=== PATIENT | male | born 1995 | race Caucasian/White ===

== ENCOUNTER 2024-02-05 14:17 | Emergency (ER) | payer BC, SELFPAY ==
[2024-02-05 14:28] VITALS: BP 129/89
[2024-02-05 15:00] LABS: % Basophils 0.6 % (0-2); % Eosinophils 1.5 % (0-6); % Immature Granulocytes 0.3 % (0-0.5); % Lymphocytes 25.8 % (20.5-51.1); % Monocytes 10.4 % (1.7-9.3); % Neutrophils 61.4 % (42.2-75.2); Absolute Eosinophils 0.1 10^3/uL (0-0.7); Absolute Lymphocytes 1.7 10^3/uL (1.2-3.4); Absolute Monocytes 0.7 10^3/uL (0.1-0.6); Absolute Neutrophils 4.1 10^3/uL (1.4-6.5); Hematocrit 38.8 % (39.0-52.0); Hemoglobin 13.9 g/dL (13.0-18.0); Mean Corp Hgb Conc. 35.8 g/dL (33.0-37.0); Mean Corpuscular Hgb 32.1 pg (27.0-31.0); Mean Corpuscular Volume 89.6 fL (80.0-94.0); Mean Platelet Volume 10.5 fL (7.4-10.4); Nucleated Red Blood Cells % 0 % (-); Platelet Count 383 10^3/uL (130-400); Red Blood Cell Count 4.33 10^6/uL (4.70-6.10); Red Cell Dist. Width 11.6 % (11.5-14.5); White Blood Cell Count 6.7 10^3/uL (4.8-10.8)
--- NOTE | 2024-02-05 15:11 | ED.GENMED ---
History of Present Illness
General
Chief Complaint: Abdominal Symptoms
Source: patient
Exam Limitations: none
Time Seen by Provider: 02/05/24 15:04
Nursing documentation reviewed up to this point in time: agreed with
History of Present Illness
History of Present Illness:
This is a 28 y/o male with a pmh of idiopathic gastroparesis presenting to the emergency department today with concerns of nausea, vomiting, and a few episodes or diarrhea. This started 4 days ago. Patient states that with his gastroparesis, he
gets recurrent episodes of nausea and vomiting. Patient states that his episodes have gotten less frequent since the placement of the gastric pacemaker, however patient reports that the pacemaker is currently at its highest setting. Patient states
he has some mild abdominal discomfort in his left lower abdomen around the area of his pacemaker, he attributes this to skin stretching since he lost weight since the placement of the pacemaker. He sees Dr. Nagy with [facility].
Patient has a follow up appointment next week with gastroenterology nurse practitioner and follow up with his physician in March. Patient denies any recent antibiotic therapy, any fevers or chills. Patient denies any chest pain, shortness of
breath.
Review of Systems
Review of Systems
All Other Systems: ROS reviewed and negative except as documented in HPI and ROS
Phy Exam
Physical Exam
Physical Exam:
General: Patient is well appearing and in no acute distress; non-toxic
Skin: Patient is pale and mildly diaphoretic.
Head: Normocephalic, atraumatic
Eyes: Sclera non-icteric. EOMs intact.
Cardiac: Regular rate and rhythm, no murmurs
Peripheral Vascular: No lower extremity swelling or edema
Pulm: Normal respiratory effort
Abdomen: No abdominal tenderness to palpation. Gastric pacemaker in place below skin in LLQ.
Neuro: CN II-XII intact, no focal neurologic deficits. PERRLA.
Psychiatric: Appropriate mood and affect.
Course
Orders/Labs/Results
Orders:
Orders
02/05/24 14:33
CMP [Comprehensive Metabolic Panel] Urgent
Complete Blood Count/With Diff Urgent
02/05/24 15:28
Ondansetron Injectable [Zofran] 4 mg IV NOW STA
02/05/24 16:06
0.9% Sodium Chloride 500 ml [Nss] 500 ml IV BOLUS
02/05/24 16:10
0.9% Sodium Chloride 250 ml [Nss] 250 ml IV BOLUS
02/05/24 16:32
0.9% Sodium Chloride 1000 ml [Nss] 1,000 ml IV BOLUS
Abnormal Lab Results
02/05/24
14:33
RBC 4.33 L 10^6/uL
(4.70-6.10)
Hct 38.8 L %
(39.0-52.0)
MCH 32.1 H pg
(27.0-31.0)
MPV 10.5 H fL
(7.4-10.4)
Absolute Monos (auto) 0.7 H 10^3/uL
(0.1-0.6)
Monocytes % 10.4 H %
(1.7-9.3)
Carbon Dioxide 31 H mmol/L
(22-30)
02/05/24 14:33
02/05/24 14:33
Vital Signs
Initial and Last Documented VS:
Initial Vital Signs
Temp Pulse Resp BP Pulse Ox
98.3 F 95 18 129/89 97
02/05/24 14:28 02/05/24 14:28 02/05/24 14:28 02/05/24 14:28 02/05/24 14:28
Last Documented Vital Signs
Temp Pulse Resp BP Pulse Ox
98.3 F 70 20 112/76 99
02/05/24 14:28 02/05/24 16:00 02/05/24 16:00 02/05/24 16:00 02/05/24 16:00
MDM/Problems Addressed
Differential Diagnosis Includes:
Differentials include gastroparesis exacerbation, gastroenteritis, IBS, C. difficile infection
MDM/Problems Addressed:
Gastroparesis:
This is a 28 y/o male with a pmh of idiopathic gastroparesis presenting to the emergency department today with concerns of nausea, vomiting, and a few episodes or diarrhea. This started 4 days ago. Patient states that with his gastroparesis, he
gets recurrent episodes of nausea and vomiting. Patient states that this episode is characteristic of his gastroparesis. Patient's manager mining advised him to report to the emergency department for IV fluids. Patient was also sent a
prescription of Compazine to his pharmacy by his manager mining to take after eating fluids. Here in emergency department, patient received fluids and he received Zofran. On reevaluation, patient states that he feels better, no longer feels
pale and is no longer diaphoretic. His CBC and CMP are unremarkable. Patient states that he has a follow-up appointment coming up with his gastroenterology team, patient stable for discharge. Discussed return precautions.
Chronic conditions affecting care:
Idiopathic gastroparesis with gastric pacemaker in place
Acute Exacerbation and/or Progression of Chronic Illness:
Idiopathic gastroparesis with gastric pacemaker in place
*Pulse Oximetry
Patient hypoxic: no
*Critical Care Note
Total Time (30-74mins, 75-104mins- exclusive of procedures): Not Applicable
Patient Management
Escalation/DeEscalation of care consider admission/obs:
Patient stable for discharge, reviewed case with my attending Dr. Norris
Update Note
Update Note:
3:56 pm-- Patient reports that his nausea is much better controlled at this point. On physical exam, he no longer has pallor.
ED Attending Note
-
Portions of this chart may have been created with voice recognition software.� Occasional wrong word or��sound alike� substitutions may have occurred due to the inherent limitations of voice recognition software.
Discharge Plan
Departure
Patient Disposition: Home (Routine Discharge)
Date of Disposition: 02/05/24
Time of Disposition: 16:45
Patient with high blood pressure during this ER visit?: Yes
Condition: Good
Discharge Problem:
Nausea & vomiting, Gastroparesis
Instructions: Dehydration, Adult (DC), Acute Diarrhea
Prescriptions:
No Action
lamotrigine 200 mg Tablet
200 mg PO HS
alprazolam [Xanax] 2 mg Tablet
2 mg PO HS
quetiapine [Seroquel] 25 mg Tablet
25 mg PO HS
Referrals:
UNKNOWN - PT DOES,NOT KNOW [Family Provider] -
Stand Alone Forms: Return to Work
Activity Restrictions/Additional Instructions:
Please return to the emergency department should you experience the inability tolerate oral intake, trouble swallowing, fevers or chills, chest pain, shortness of breath, or any other signs or symptoms concerning to you.
Please follow up with your gastroenterology provider next week.
You can take your Compazine as directed by your manager mining.
Interventions
Interventions:
*Risk Screen - Suicide Last Done: 02/05/24 15:56
*General Assessment Last Done: 02/05/24 15:56
*Neglect/Abuse Screening Last Done: 02/05/24 15:56
ED- Fall Risk Assessment Last Done: 02/05/24 15:56
*ED COVID-19 Vaccine History Last Done: 02/05/24 15:56
*Nursing Disposition Last Done: 02/05/24 17:01
QJ-Lziwog-Fcyzzadzjm Assessment Last Done: 02/05/24 15:56
Discharge Date and Time
Discharge Date/Time: 02/05/24 17:01
Print Language: SLOVENIAN
[2024-02-05 15:24] LABS: ALT (SGPT) 15 U/L (0-50); AST (SGOT) 22 U/L (17-59); Alkaline Phosphatase 63 U/L (38-126); Blood Urea Nitrogen 15 mg/dl (9-20); Calcium 10.2 mg/dl (8.4-10.2); Carbon Dioxide 31 mmol/L (22-30); Chloride 101 mmol/L (98-107); Glucose 76 mg/dl (70-99); Potassium 4.1 mmol/L (3.5-5.1); Sodium 141 mmol/L (135-145); Total Bilirubin 0.7 mg/dl (0.2-1.3); Total Protein 7.5 g/dl (6.3-8.2); eGFR > 60.00
[2024-02-05] MEDS: ZOFRAN 4 MG IV (15:29)
[2024-02-05 16:00] VITALS: BP 112/76
[2024-02-05] MEDS: NSS 250 IV (16:31)
[2024-02-05] MEDS: NSS 1000 IV (16:32)
== END 2024-02-05 17:01 | disposition home or self-care (01) ==
LOC: EMR 14:17
PROVIDERS: Emergency Medicine; EMERGENCY PHYSICIAN Emergency Medicine
DX: K31.84 Gastroparesis (principal); R11.2 Nausea with vomiting, unspecified; R19.7 Diarrhea, unspecified; R10.32 Left lower quadrant pain; R03.0 Elevated blood-pressure reading, without diagnosis of hypertension; F41.9 Anxiety disorder, unspecified; F31.9 Bipolar disorder, unspecified; F32.A Depression, unspecified; Z96.89 Presence of other specified functional implants; Z86.16 Personal history of COVID-19; Z88.1 Allergy status to other antibiotic agents; Z88.8 Allergy status to other drugs, medicaments and biological substances; Z91.018 Allergy to other foods
CPT/HCPCS: 99284; 96374; 96361 ×2; 80053; 85025

== ENCOUNTER 2025-01-27 07:37 | Emergency (ER) | payer OTHER, SELFPAY ==
[2025-01-27 07:39] VITALS: BP 139/86
[2025-01-27 07:54] VITALS: BMI 17.4
--- NOTE | 2025-01-27 08:10 | ED.GENMED ---
History of Present Illness
General
Chief Complaint: Abdominal Symptoms
Source: patient
Exam Limitations: none
Time Seen by Provider: 01/27/25 07:57
History of Present Illness
History of Present Illness:
29yoM with a history of gastroparesis with gastric pacemaker and bipolar disorder presenting for evaluation of vomiting and diarrhea. Patient has been having significant diarrhea for the past 10 days. He states that everything 'goes right through
me.' He has had 7 episodes of diarrhea so far today. He is having vomiting intermittently but admits that the diarrhea is worse. He is having some intermittent abdominal discomfort which is related to the bowel movements. He has no pain
currently. Symptoms are different from his typical gastroparesis flares as he does not usually have diarrhea this severe. He has tried the BRAT diet without improvement. He did not want to take Imodium as this has caused constipation in the past.
He denies any fevers or hematochezia. No suspicious food intake, recent travel, sick contacts, or recent antibiotics. No new medications.
Phy Exam
General Physical Exam
General Presentation: well appearing and no apparent distress
General Skin: warm and dry
General Habitus: normal
General Mental: alert
ENT Exam
ENT Exam: normocephalic
Pulmonary Exam
Pulmonary Exam: no respiratory distress
Gastrointestinal Exam
Gastrointestinal Exam: normal bowel sounds, non tender, soft and non distended
Neurological Exam
Neurological Exam: alert
Mitchell Coma Scale
Eye Opening: Spontaneous
Verbal Response: Oriented
Motor Response: Obeys Commands
GCS Total Score: 15
Skin Exam
Skin Exam: normal color and warm/dry
Psychiatric Exam
Psychiatric Exam: normal mood/affect
Course
Orders/Labs/Results
Orders:
Orders
01/27/25 08:09
0.9% Sodium Chloride 1000 ml [Nss] 1,000 ml IV BOLUS
01/27/25 08:12
Complete Blood Count/With Diff Urgent
Comprehensive Metabolic Panel Urgent
Lipase Urgent
Magnesium Urgent
Urinalysis Reflex To Culture Urgent
Date Specimen was Collected: 01/27/25
Time Specimen was Collected: 08:11
Urine Microscopic Reflex Cult Urgent
Urine Culture Urgent
DANA Source: U
Specimen Description:
Date Specimen was Collected: 01/27/25
Time Specimen was Collected: 08:11
01/27/25 09:00
Iohexol [Omnipaque] See Protocol PO NOW STA
01/27/25 09:01
CT Abd/pel W Iv And Oral Contr Urgent
Comment:
Reason For Exam: abd pain, diarrhea, transaminitis
01/27/25 09:07
Hepatitis A IgM Antibody Urgent
Prothrombin Time Urgent
01/27/25 10:14
CDIFF [C difficile Antigen & Toxins] Urgent
DANA Source: Feces/Stool
Specimen Description:
Date Specimen was Collected: 01/27/25
Time Specimen was Collected: 10:13
Stool Culture Urgent
DANA Source: Feces/Stool
Specimen Description:
Date Specimen was Collected: 01/27/25
Time Specimen was Collected: 10:13
01/27/25 10:30
Add On - Microbiology Urgent
Tests Added?: c.diff testing
01/27/25 12:53
Ondansetron Injectable [Zofran] 4 mg IV NOW STA
Abnormal Lab Results
01/27/25
08:12
RBC 4.16 L 10^6/uL
(4.70-6.10)
Hgb 12.9 L g/dL
(13.0-18.0)
Hct 37.2 L %
(39.0-52.0)
Absolute Monos (auto) 0.7 H 10^3/uL
(0.1-0.6)
Monocytes % 11.1 H %
(1.7-9.3)
AST 153 H U/L
(17-59)
ALT 350 H U/L
(0-50)
Ur Occult Blood Reflex 2+ A
(Negative)
Leukocyte Esterase Rfl 1+ A
(Negative)
Urine Bacteria (Reflex) Few A
(Negative)
Urine Albumin (Reflex) 1+ A
(Neg - Trace)
01/27/25 08:12
01/27/25 08:12
Vital Signs
Initial and Last Documented VS:
Initial Vital Signs
Temp Pulse Resp BP Pulse Ox
97.7 F 84 18 139/86 99
01/27/25 07:39 01/27/25 07:39 01/27/25 07:39 01/27/25 07:39 01/27/25 07:39
Last Documented Vital Signs
Temp Pulse Resp BP Pulse Ox
97.7 F 82 16 108/73 99
01/27/25 07:39 01/27/25 08:05 01/27/25 08:05 01/27/25 10:00 01/27/25 11:15
MDM/Problems Addressed
Differential Diagnosis Includes:
29yoM here with profuse diarrhea x 10 days. Also having some vomiting. Hx of gastroparesis. VSS. He is well appearing in no distress. Abdominal exam is benign. Differential diagnosis includes but is not limited to: infectious diarrhea, viral
gastroenteritis, dehydration
Initial ED plan: Check abdominal labs, magnesium, UA, and stool testing. IV fluid bolus.
*Pulse Oximetry
SaO2: 100
Oxygen Mode of Delivery: Room air
Patient hypoxic: no (99%)
*Critical Care Note
Total Time (30-74mins, 75-104mins- exclusive of procedures): Not Applicable
Update Note
Update Note:
Labs reveal a transaminitis with an AST 153 and ALT 350. Total bilirubin normal. Electrolytes and renal function WNL. Hepatitis A and INR testing added. INR within normal limits at 1.0. CT ordered which is negative for acute findings. There is
nonspecific mild periportal edema which may be related to fluid resuscitation. Possible pneumonitis seen incidentally although he has no symptoms to correlate with this. Stool studies sent. No indication for hospitalization. Recommend supportive
care including hydration, bland diet, and Pepto-Bismol. He was advised to follow-up with his birth certificate clerk and have repeat blood work to monitor his LFTs. ED return precautions reviewed. Patient discharged in stable condition.
ED Attending Note
-
Portions of this chart may have been created with voice recognition software.� Occasional wrong word or��sound alike� substitutions may have occurred due to the inherent limitations of voice recognition software.
Discharge Plan
Departure
Patient Disposition: Home (Routine Discharge)
Date of Disposition: 01/27/25
Time of Disposition: 12:54
Patient with high blood pressure during this ER visit?: No
Discharge Problem:
Acute diarrhea, Transaminitis
Instructions: Diarrhea in teens and adults
Prescriptions:
No Action
lamotrigine 200 mg Tablet
200 mg PO HS
ondansetron [Zofran ODT] 8 mg Tablet,Disintegrating
8 mg PO Q8H PRN (Reason: nausea)
alprazolam 0.5 mg Tablet
1.5 mg PO HS
lidocaine [Lidoderm] 5 % Adhesive Patch,Medicated
1 patch TOPICAL DAILYPRN PRN (Reason: mild pain)
dextroamphetamine-amphetamine [Adderall] 5 mg Tablet
5 mg PO DAILYPRN PRN (Reason: focus)
quetiapine [Seroquel] 50 mg Tablet
50 mg PO HS
Referrals:
Octavia Paris DO [Family Provider, Family Practice]
Activity Restrictions/Additional Instructions:
We will call you if your stool testing is positive.
Continue BRAT diet. Drink plenty of fluids and hydrate. You may take Pepto-Bismol as needed.
Please call your family doctor and birth certificate clerk today for follow-up. You should have repeat blood work in 1-2 weeks to monitor your liver enzymes. Return to the ER with any new or worsening symptoms.
Interventions
Interventions:
*Risk Screen - Suicide Last Done: 01/27/25 07:41
*General Assessment Last Done: 01/27/25 07:55
*Neglect/Abuse Screening Last Done: 01/27/25 07:55
*ED- Fall Risk Assessment Last Done: 01/27/25 07:54
*ED COVID-19 Vaccine History Last Done: 01/27/25 07:54
*Nursing Disposition Last Done: 01/27/25 13:44
AR-Kmtoll-Hkecaxgwvc Assessment Last Done: 01/27/25 08:03
Discharge Date and Time
Discharge Date/Time: 01/27/25 13:46
Print Language: STATELESS
[2025-01-27 08:14] VITALS: BP 103/73
[2025-01-27] MEDS: NSS 1000 IV (08:21)
[2025-01-27 08:24] LABS: Hematocrit 37.2 % (39.0-52.0); Hemoglobin 12.9 g/dL (13.0-18.0); Mean Corp Hgb Conc. 34.7 g/dL (33.0-37.0); Mean Corpuscular Volume 89.4 fL (80.0-94.0); Nucleated Red Blood Cells % 0 % (-); Platelet Count 311 10^3/uL (130-400); Red Cell Dist. Width 12.7 % (11.5-14.5)
[2025-01-27 08:27] LABS: Urine Character Clear (Clear)
[2025-01-27 08:59] LABS: ALT (SGPT) 350 U/L (0-50); AST (SGOT) 153 U/L (17-59); Albumin 4.7 g/dl (3.5-5.0); Alkaline Phosphatase 82 U/L (38-126); Blood Urea Nitrogen 9 mg/dl (9-20); Calcium 9.6 mg/dl (8.4-10.2); Carbon Dioxide 29 mmol/L (22-30); Chloride 104 mmol/L (98-107); Estimated Creatinine Clearance 82 ml/min; Glucose 97 mg/dl (70-99); Magnesium 1.9 mg/dl (1.6-2.3); Potassium 4.2 mmol/L (3.5-5.1); Sodium 140 mmol/L (135-145); Total Protein 7.2 g/dl (6.3-8.2); eGFR > 60.00
[2025-01-27 09:07] VITALS: BP 111/73
[2025-01-27] MEDS: OMNIPAQUE 50 ML PO (09:12)
[2025-01-27 09:32] LABS: INR 1.00; PT 13.7 Sec (11.4-14.6)
[2025-01-27 09:48] LABS: Lipase 108 U/L (23-300)
[2025-01-27 10:00] VITALS: BP 108/73
[2025-01-27 10:05] LABS: Urine Red Blood Cell 0-2 /HPF (0-2)
[2025-01-27] MEDS: ZOFRAN 4 MG IV (13:18)
== END 2025-01-27 13:46 | disposition home or self-care (01) ==
LOC: EMR 07:37
PROVIDERS: Physician Assistant; EMERGENCY PHYSICIAN Emergency Medicine; FAMILY PHYSICIAN Family Medicine
DX: R19.7 Diarrhea, unspecified (principal); R74.01 Elevation of levels of liver transaminase levels; F31.9 Bipolar disorder, unspecified
CPT/HCPCS: 99284; 96374; 74177; 80053; 81003; 81015; 83690; 83735; 85025; 85610; 86709; 87045; 87046; 87086; 87324; 87427; 87449; Q9967